=== PATIENT | male | born 1955 | race Caucasian/White ===

== ENCOUNTER 2018-11-20 09:40 | Outpatient (RCR) | payer MEDICARE, BC | END 2018-11-21 | disposition home or self-care (01) | LOC: CARDREHAB | DX: Z48.812 Encounter for surgical aftercare following surgery on the circulatory system (principal); Z95.5 Presence of coronary angioplasty implant and graft; I21.19 ST elevation (STEMI) myocardial infarction involving other coronary artery of inferior wall ==

== ENCOUNTER 2018-12-06 09:40 | Outpatient (RCR) | payer MEDICARE, BC | END 2019-02-20 | disposition home or self-care (01) | LOC: CARDREHAB | DX: Z48.812 Encounter for surgical aftercare following surgery on the circulatory system (principal); Z95.5 Presence of coronary angioplasty implant and graft; I25.2 Old myocardial infarction ==